=== PATIENT | female | born 1940 | race Caucasian/White ===

== ENCOUNTER → 2017-05-26 | Outpatient (CLI) | payer MEDICARE ==
--- NOTE | 2017-05-26 08:55 | XR ---
EXAMINATION TYPE: XR lumbosacral spine min 4V , 5 VIEWS DATE OF EXAM ORDERED: 05/26/2017 HISTORY: M54.5 LBP. COMPARISON: None. FINDINGS: There is a degenerative grade 1 spondylolisthesis of L5 on S1. Vertebral body height and a lignment are otherwise maintained. There is mild disc space loss at L5-S1. There is mild, diffuse fac et arthropathy. The pedicles are intact. IMPRESSION: 1. NO ACUTE OSSEOUS LESION. 2. DEGENERATIVE CHANGE.
--- NOTE | 2017-05-26 08:56 | XR ---
EXAMINATION TYPE: XR Hip Bilateral Complete , 4 VIEWS DATE OF EXAM ORDERED: 05/26/2017 HISTORY: M25.551 hip pain. COMPARISON: None. FINDINGS: No fracture or dislocation is seen. There is mild remodeling changes present in both hips. IMPRESSION: 1. NO ACUTE OSSEOUS LESION. 2. MILD DEGENERATIVE CHANGE.
== END | disposition home or self-care (01) ==
LOC: RADXRMAIN 08:33
PROVIDERS: ATTEND Family Medicine
DX: M47.817 Spondylosis without myelopathy or radiculopathy, lumbosacral region (principal); M25.552 Pain in left hip; M25.551 Pain in right hip
CPT/HCPCS: 72110; 73521

== ENCOUNTER → 2017-10-20 | Outpatient (CLI) | payer MEDICARE ==
--- NOTE | 2017-10-20 17:44 | BD ---
EXAMINATION TYPE: MG DEXA axial skeleton. DATE OF EXAM: 10/20/2017 COMPARISON: 11.30.2013 CLINICAL HISTORY: PT IS A 77 YR OLD FEMALE...ICD-10 CODE: M19.90 OSTEOARTHRITIS Height: 65 Weight: 158 FRAX RISK QUESTIONS: Alcohol (3 or more units per day): NO Family History (Parent hip fracture): NO FXS Glucocorticoids (More than 3mos): NO (Ex: prednisone, prednisolone, methylprednisolone, dexamethasone, and hydrocortisone). History of Fracture in Adulthood: NO Secondary Osteoporosis: YES 1. Type 1 Diabetes: NO 2. Hyperthyroidism: NO 3. Menopause before 45: YES 4. Malnutrition: NO 5. Chronic liver disease: NO Rheumatoid Arthritis: NO Current Tobacco Use: NO RISK FACTORS HISTORY OF: Family History of Osteoporosis: YES, HER MOTHER, NO HIP FX Active: YES Diet low in dairy products/other sources of calcium: NO Postmenopausal woman: YES AT AGE, 42 YRS OLD, NATURAL Lost more than 2 inches in height since high school: NO Hyperparathyroidism: NO Adrenal Insufficiency: NO MEDICATIONS: Additional Medications: MULTIVITAMIN, STATINS FOR CHOLESTEROL Additional History: OSTEOARTHRITIS EXAM MEASUREMENTS: Bone mineral densitometry was performed using the [employer] System. Bone mineral density as measured about the Lumbar spine is: ----- L1-L4(G/cm2): 0.759 T Score Values are as follows: ----- L1: -2.8 ----- L2: -4.3 ----- L3: -3.6 ----- L4: -3.4 ----- L1-L4: -3.5 Bone mineral density has: Increased 14.0% since study of: 11.30.2013 Bone mineral density about the R hip (g/cm2): 0.648 Bone mineral density about the L hip (g/cm2): 0.749 T Score values are as follows: -----R Neck: -2.6 -----L Neck: -2.1 -----R Total: -2.9 -----L Total: -2.0 Bone mineral density has: Increased 3.2% since study of: 11.30.2013 FRAX%'S: THERE IS A 19.9% CHANCE OF A MAJOR OSTEOPOROTIC FX AND A 7.1% OF HIP FX....PROBABILITY OF FX IN 10 YRS TIME IMPRESSION: Osteoporosis (T Score less than -2.5) as noted by T Score values at the There is increased fracture risk and therapy is usually indicated based on age. Re-Screen 1-2 years. NOTE: T-SCORE=SD OF THE YOUNG ADULT MEAN.
== END | disposition home or self-care (01) ==
LOC: RADBDWWP 12:25
PROVIDERS: ATTEND Family Medicine
DX: M81.0 Age-related osteoporosis without current pathological fracture (principal)
CPT/HCPCS: 77080

== ENCOUNTER → 2019-02-22 | Outpatient (CLI) | payer MEDICARE ==
--- NOTE | 2019-02-22 16:01 | XR ---
Bilateral hips HISTORY: Bilateral hip pain 2 views of each hip are submitted on 4 images and correlated to prior bilateral hips 05/26/2017. Bone mineralization mildly reduced. Alignment and joint spaces are relatively maintained, mild remode ling present in the femoral heads. IMPRESSION: Mild osteoarthritic changes. Hip MRI may be of benefit. Exam is stable.
== END ==
LOC: RADXRMAIN 11:53
PROVIDERS: ATTEND Family Medicine
DX: M16.0 Bilateral primary osteoarthritis of hip (principal)
CPT/HCPCS: 73521

== ENCOUNTER 2019-06-02 08:46 | Emergency (ER) | payer MEDICARE ==
[2019-06-02 08:55] VITALS: RESP 18
[2019-06-02] MEDS ORDERED: LIDOCAINE 5% PATCH TOPICAL STA (09:27)
[2019-06-02] MEDS ORDERED: KETOROLAC 30 MG/ML 1 ML VIAL IM STA (09:27)
[2019-06-02] MEDS ORDERED: MORPHINE SULFATE 2 MG/ML SYRINGE IM STA (09:27)
--- NOTE | 2019-06-02 09:36 | ED ---
Fall HPI <Nhan Humphries - Last Filed: 06/02/19 10:16> - General Source: patient, family Mode of arrival: ambulatory <Sophia Mac - Last Filed: 06/02/19 11:18> - General Chief Complaint: Fall Stated Complaint: fall Time Seen by Provider: 06/02/19 09:05 - History of Present Illness Initial Comments: 79-year-old female patient presents to the emergency department today for evaluation of right anterior rib pain after experiencing a fall. Patient states that last evening she was going from the house into the garage down 2 steps when she fell and landed on top of some oil bottles and an air compressor. Patient states that she did strike her ribs on something. Patient states that since the injury she has been having a sharp pain just beneath her right breast. Patient states that worsens with any type of movement and deep inspiration. She denies any cough or hemoptysis. She denies hitting her head or losing consciousness with the fall. She denies any neck or back pain. She does have some ecchymosis to the right upper arm but denies any pain with movement or any significant discomfort to the area. She denies taking any medication for her symptoms. She denies any use of anticoagulant or antiplatelet medications. Patient denies any headache, chest pain, shortness of breath, dizziness, weakness, abdominal pain, nausea, vomiting, or difficulties with bowel movements or urination. (Sophia Mac) - Related Data Home Medications Medication Instructions Recorded Confirmed Colesevelam [Welchol] 1,875 mg PO DAILY 03/31/15 02/04/16 Previous Rx's Medication Instructions Recorded Omeprazole [PriLOSEC] 20 mg PO AC-BRKFST #90 cap 02/04/16 Acetaminophen-Codeine 300-30mg 1 tab PO Q6H PRN #12 tablet 06/02/19 [Tylenol #3] Ibuprofen [Motrin] 600 mg PO Q8HR PRN #30 tab 06/02/19 Lidocaine 5% Patch [Lidoderm] 1 patch TOPICAL DAILY #5 patch 06/02/19 Allergies Allergy/AdvReac Type Severity Reaction Status Date / Time No Known Allergies Allergy Verified 02/04/16 09:30 Review of Systems ROS Other: All systems not noted in ROS Statement are negative. <Nhan Humphries - Last Filed: 06/02/19 10:16> ROS Other: All systems not noted in ROS Statement are negative. <Sophia Mac M - Last Filed: 06/02/19 11:18> ROS Statement: Those systems with pertinent positive or pertinent negative responses have been documented in the HPI. Past Medical History Past Medical History: Deep Vein Thrombosis (DVT), Hyperlipidemia Additional Past Medical History / Comment(s): DVT IN LEG IN 1960'S History of Any Multi-Drug Resistant Organisms: None Reported Past Surgical History: Hysterectomy Additional Past Surgical History / Comment(s): RT LEG VEIN STRIPPING Past Anesthesia/Blood Transfusion Reactions: No Reported Reaction Past Psychological History: No Psychological Hx Reported Smoking Status: Never smoker Past Alcohol Use History: None Reported Past Drug Use History: None Reported <Sophia Mac - Last Filed: 06/02/19 11:18> General Exam Limitations: no limitations General appearance: alert, in no apparent distress, other (This is a well- developed, well-nourished elderly female patient in no acute distress. Vital signs upon presentation are temperature 98.1F, pulse 81, respirations 18, blood pressure 161/94, pulse ox 96% on room air.) Head exam: Present: atraumatic, normocephalic, normal inspection Eye exam: Present: normal appearance, PERRL, EOMI. Absent: scleral icterus, conjunctival injection, periorbital swelling ENT exam: Present: normal exam, normal oropharynx, mucous membranes moist Neck exam: Present: normal inspection, full ROM, other (Nontender, no step-off, no deformity to firm midline palpation of the posterior cervical spine. Full range of motion without pain or limitation.). Absent: tenderness, meningismus, lymphadenopathy Respiratory exam: Present: normal lung sounds bilaterally, chest wall tenderness (Right anterior chest wall tenderness over rib #7 and 8 at the midclavicular line. There is some soft tissue swelling. No ecchymosis noted.). Absent: respiratory distress, wheezes, rales, rhonchi, stridor Cardiovascular Exam: Present: regular rate, normal rhythm, normal heart sounds. Absent: systolic murmur, diastolic murmur, rubs, gallop, clicks GI/Abdominal exam: Present: soft, normal bowel sounds, other (No ecchymosis or evidence of trauma.). Absent: distended, tenderness, guarding, rebound, rigid Extremities exam: Present: full ROM, normal capillary refill, other (There is large area of ecchymosis over the right upper arm. No bony tenderness. Full range of motion is intact. Skin is otherwise pink, warm, and dry. Cap refills less than 3 seconds. Radial pulses 2+ and equal bilaterally.). Absent: normal inspection, tenderness, pedal edema, joint swelling, calf tenderness Back exam: Present: normal inspection, other (Nontender, no step-off, no deformity to firm midline palpation of the thoracic and lumbar vertebrae. Full range of motion without pain or limitation.). Absent: vertebral tenderness Neurological exam: Present: alert, oriented X3, CN II-XII intact Psychiatric exam: Present: normal affect, normal mood Skin exam: Present: warm, dry, intact, normal color. Absent: rash <Sophia Mac - Last Filed: 06/02/19 11:18> Course <Nhan Humphries - Last Filed: 06/02/19 10:16> Vital Signs 06/02/19 06/02/19 08:49 10:45 Temperature 98.1 F 98 F Pulse Rate 81 78 Respiratory 18 18 Rate Blood Pressure 161/94 129/83 O2 Sat by Pulse 96 Oximetry - Reevaluation(s) Reevaluation #1: 06/02/19 10:16 STOCK CONTROL SUPERVISOR supervision: I proceeded evaluation this case and a review the imaging no definite rib fractures are seen. Patient did have a fall. Contusion is suspected. I do agree with the assessment and plan. (Nhan Humphries) Medical Decision Making - Radiology Data Radiology results: report reviewed, image reviewed <Sophia Mac - Last Filed: 06/02/19 11:18> - Medical Decision Making 79-year-old female patient presented to the emergency department today for evaluation after experiencing a fall at home last evening. Physical examination did reveal ecchymosis to the right upper arm with some mild localized tenderness but no bony tenderness or difficulty with range of motion. Patient states she is concern is the right anterior rib pain. Physical examination did reveal tenderness over the right anterior ribs. No ecchymosis was some mild soft tissue swelling. X-ray of the right ribs and chest was obtained shows no acute pulmonary process however there was evidence for a nondisplaced fracture to the right ninth rib. Patient was given pain medication here she does have improvement of symptoms with this. She charged home with pain management prescriptions. She is given incentive spirometer with instructions regarding its use. We did discuss coughing and deep breathing exercises. She is instructed to follow-up with her primary care physician for recheck in 1-2 days. Return parameters were discussed in detail. She verbalizes understanding and agrees with this plan. (Sophia Mac) - Radiology Data X-ray of the right ribs with one view chest x-ray were obtained. Report was reviewed in its entirety. Impression by Dr. Monreal shows no acute pulmonary process. No acute displaced right-sided rib fractures are seen. I did review the image there is concern for a nondisplaced rib fracture to rib #9 (Sophia Mac) Disposition <Nhan Humphries - Last Filed: 06/02/19 10:16> Is patient prescribed a controlled substance at d/c from ED?: Yes When asked, does pt state using other controlled substances?: No If prescribed controlled substance>3 days was MAPS reviewed?: Prescribed <3 Days If opioid is for acute pain is fill amount 7 days or less?: Yes If Rx opioid, was Start Talking consent form obtained?: Yes Time of Disposition: 10:22 <Sophia Mac - Last Filed: 06/02/19 11:18> Clinical Impression: Right rib fracture Disposition: HOME SELF-CARE Condition: Good Instructions (If sedation given, give patient instructions): How to Use an Incentive Spirometer (ED), Rib Fracture (ED) Additional Instructions: Use pain medications as directed. Splint with a pillow over the area for any coughing and while you're doing deep breathing exercises. Increase fluids. Follow-up with your primary care physician for recheck in 1-2 days. Return to the emergency department immediately should she develop any shortness of breath or coughing up blood. Return to for any other new, worsening, or concerning symptoms. Prescriptions: Lidocaine 5% Patch [Lidoderm] 1 patch TOPICAL DAILY #5 patch Ibuprofen [Motrin] 600 mg PO Q8HR PRN #30 tab PRN Reason: Pain Acetaminophen-Codeine 300-30mg [Tylenol #3] 1 tab PO Q6H PRN #12 tablet PRN Reason: Pain Referrals: Yandel Gutiérrez DO [Primary Care Provider] - 1-2 days
--- NOTE | 2019-06-02 09:54 | XR ---
EXAMINATION TYPE: XR ribs RT w pa chest xray DATE OF EXAM: 06/02/2019 CLINICAL HISTORY: Follow injury with chest and right-sided rib pain. TECHNIQUE: Single frontal view of the chest is obtained. A frontal and oblique images of the right-si ded ribs are obtained. COMPARISON: None FINDINGS: There is lobulated right hemidiaphragm with right basilar vertical linear scarring. There is no focal air space opacity, pleural effusion, or pneumothorax seen. The cardiac silhouette size i s within normal limits. The osseous structures are demineralized. Dedicated images of right-sided ribs show no obvious acute displaced fracture. Overlying soft tissue is unremarkable. IMPRESSION: 1. No acute pulmonary process. 2. No acute displaced right-sided rib fractures are seen.
[2019-06-02 10:45] VITALS: BP 129/83; PULSE 78; TEMP 98
== END 2019-06-02 10:45 | disposition home or self-care (01) ==
LOC: EC 08:46
DX: S22.31XA Fracture of one rib, right side, initial encounter for closed fracture (principal); S40.021A Contusion of right upper arm, initial encounter; E78.5 Hyperlipidemia, unspecified; Z79.899 Other long term (current) drug therapy; W10.9XXA Fall (on) (from) unspecified stairs and steps, initial encounter; Y93.01 Activity, walking, marching and hiking; Y92.008 Other place in unspecified non-institutional (private) residence as the place of occurrence of the external cause
CPT/HCPCS: 71101; 99284; 96372 ×2; J1885; J2270

== ENCOUNTER → 2019-11-01 | Outpatient (CLI) | payer MEDICARE ==
--- NOTE | 2019-11-01 14:00 | BD ---
EXAMINATION TYPE: Axial Bone Density DATE OF EXAM: 11/01/2019 COMPARISON: 10.20.2017 CLINICAL HISTORY: 79 YR OLD FEMALE....ICD-10 CODE: M81.0 OSTEOPOROSIS Height: 64.6 Weight: 155 FRAX RISK QUESTIONS: History of Fracture in Adulthood: YES RISK FACTORS HISTORY OF: HX OF RIB FXs, AFTER AGE 49 Family History of Osteoporosis: YES, HER MOTHER NO FX Postmenopausal woman: YES, IN HER 50s Lost more than 2 inches in height since high school: YES Frequent falls: UNSTEADY Poor Health: ELDERLY Hyperparathyroidism: NO Adrenal Insufficiency: NO MEDICATIONS: Osteoporosis Medications: YES, FOSAMAX, FOR ABOUT 1-2 YRS Additional Medications: CHOLESTEROL MEDS, MULTIVITAMIN Additional History: CHOLESTEROL, OSTEOPOROSIS EXAM MEASUREMENTS: Bone mineral densitometry was performed using the [employer] System. Bone mineral density as measured about the Lumbar spine is: ----- L1-L4(G/cm2): 0.789 T Score Values are as follows: ----- L1: -2.3 ----- L2: -4.0 ----- L3: -3.6 ----- L4: -3.2 ----- L1-L4: -3.3 Bone mineral density has: Increased 2.5% since study of: 10.20.2017 Bone mineral density about the R hip (g/cm2): 0.649 Bone mineral density about the L hip (g/cm2): 0.721 T Score values are as follows: -----R Neck: -2.7 -----L Neck: -2.5 -----R Total: -2.9 -----L Total: -2.3 Bone mineral density has: Decreased -2.0% since study of: 10.20.2017 FRAX%s: THERE IS A 30.1% CHANCE FOR A MAJOR OSTEOPOROTIC FX AND A 10.7% FOR HIP......PROBABILITY FO R FX IN 10 YRS TIME IMPRESSION: Osteoporosis lumbar spine. Osteoporosis right hip with osteopenia left hip. NOTE: T-SCORE=SD OF THE YOUNG ADULT MEAN.
== END | disposition home or self-care (01) ==
LOC: RADBDWWP 07:03
PROVIDERS: ATTEND Family Medicine
DX: M81.0 Age-related osteoporosis without current pathological fracture (principal)
CPT/HCPCS: 77080

== ENCOUNTER 2021-07-07 10:00 | Emergency (ER) | payer MEDICARE ==
[2021-07-07 10:04] VITALS: RESP 18; TEMP 97.7
[2021-07-07] MEDS ORDERED: ACETAMINOPHEN TAB 500 MG TAB PO STA (10:25)
--- NOTE | 2021-07-07 10:40 | ED ---
Fall HPI - General Chief Complaint: Fall Stated Complaint: Fall Time Seen by Provider: 07/07/21 10:06 Source: patient Mode of arrival: wheelchair - History of Present Illness Initial Comments: Patient is an 81-year-old female presenting to emergency Department with complaints of right-sided rib pain after she fell this morning. She states she tripped over the rug and fell backwards into a watering can. She landed mostly on her right ribs of the can going underneath her ribs. She denies hitting her head, she signed thinners. She has no other complaints other than the right- sided rib pain. Her vitals are stable. - Related Data Home Medications Medication Instructions Recorded Confirmed Colesevelam [Welchol] 1,875 mg PO DAILY 03/31/15 07/07/21 Alendronate Sodium [Fosamax] 70 mg PO WE 07/07/21 07/07/21 Kenrick/D3/Mag11/Zinc/Hydroponics Worker/Pelon/Bor 1 tab PO DAILY 07/07/21 07/07/21 [Caltrate 600+D Plus Tablet] Cholecalciferol [Vitamin D3 (25 25 mcg PO DAILY 07/07/21 07/07/21 Mcg = 1000 Iu)] Meloxicam [Mobic] 15 mg PO DAILY 07/07/21 07/07/21 Allergies Allergy/AdvReac Type Severity Reaction Status Date / Time No Known Allergies Allergy Verified 07/07/21 11:18 Review of Systems ROS Statement: Those systems with pertinent positive or pertinent negative responses have been documented in the HPI. ROS Other: All systems not noted in ROS Statement are negative. Past Medical History Past Medical History: Deep Vein Thrombosis (DVT), Hyperlipidemia Additional Past Medical History / Comment(s): DVT IN LEG IN History of Any Multi-Drug Resistant Organisms: None Reported Past Surgical History: Hysterectomy Additional Past Surgical History / Comment(s): RT LEG VEIN STRIPPING Past Anesthesia/Blood Transfusion Reactions: No Reported Reaction Past Psychological History: No Psychological Hx Reported Smoking Status: Never smoker Past Alcohol Use History: None Reported Past Drug Use History: None Reported General Exam - General Exam Comments Initial Comments: GENERAL: Patient is well-developed and well-nourished. Patient is nontoxic and in no ac boo distress. HEAD: Atraumatic, normocephalic. EYES: Pupils equal round and reactive to light, extraocular movements intact, sclera anicteric, conjunctiva are normal. Eyelids were unremarkable. ENT: Nares patent, oropharynx clear without exudates. Moist mucous membranes. NECK: Normal range of motion, supple without lymphadenopathy or JVD. LUNGS: Unlabored respirations. Breath sounds clear to auscultation bilaterally and equal. No wheezes rales or rhonchi. HEART: Regular rate and rhythm without murmurs, rubs or gallops. ABDOMEN: Soft, nontender, normoactive bowel sounds. No guarding, no rebound. No masses appreciated. : Deferred MUSCULOSKELETAL: Normal extremities with adequate strength and normal range of motion, no pitting or edema. No clubbing or cyanosis. Patient has pain with palpation of the right lateral ribs, which does extend to the anterior and posterior aspects. No deformity seen, no crepitus, no bruising at this time. NEUROLOGICAL: Patient is alert and oriented x 3. Motor and sensory are also intact. Cranial nerves II through XII grossly intact. Symmetrical smile. Normal speech, normal gait. PSYCH: Normal mood, normal affect. SKIN: Warm, Dry, normal turgor, no rashes or lesions noted. Limitations: no limitations Course Vital Signs 07/07/21 10:01 Temperature 97.7 F Pulse Rate 98 Respiratory 18 Rate Blood Pressure 135/72 O2 Sat by Pulse 98 Oximetry Medical Decision Making - Medical Decision Making Patient is an 81-year-old female presenting for right-sided rib pain after she fell a couple hours ago. She did not hit her head, she is no other complaints other than the rib pain. X-rays of the right-sided ribs and chest reveal no acute pulmonary process, there are 2 acute nondisplaced right rib fractures of the eighth and ninth ribs. Patient was given Tylenol here. We discussed using incentive spirometer. I'll give her Tylenol 3's to go home with. She can follow up with her doctor as needed. She is agreeable as planned care and is stable for discharge. Return parameters were discussed with her and she verbalized understanding. Case discussed with Dr. Wilson. Disposition Clinical Impression: Fall, Fracture of rib of right side Disposition: HOME SELF-CARE Condition: Stable Instructions (If sedation given, give patient instructions): Rib Fracture (ED) Additional Instructions: Please return to the Emergency Department if symptoms worsen or any other conc erns. You may continue with meloxicam as prescribed. May alternate it with Tylenol. May take Tylenol threes for more severe pain. Please follow-up with your doctor as needed. Please use incentive spirometer as instructed. Is patient prescribed a controlled substance at d/c from ED?: No Referrals: Yandel Gutiérrez DO [Primary Care Provider] - 1-2 days Time of Disposition: 12:31
--- NOTE | 2021-07-07 12:04 | XR ---
EXAMINATION TYPE: XR ribs RT w pa chest xray DATE OF EXAM: 07/07/2021 CLINICAL HISTORY: Chest and right-sided rib pain after fall injury TECHNIQUE: Single frontal view of the chest is obtained. A frontal and oblique images of the right-si ded ribs. COMPARISON: Prior chest and right rib x-rays June 02, 2019 FINDINGS: There is lobulated right hemidiaphragm redemonstrated. There is no suspicious new focal ai r space opacity, pleural effusion, or pneumothorax seen bilaterally. The cardiac silhouette size is stable and upper limits of normal. The osseous structures are demineralized. Dedicated images of right-sided ribs show acute mildly displaced fracture involving anterolateral rig ht eighth and ninth ribs confirmed on several images. Overlying soft tissue is unremarkable. IMPRESSION: 1. No acute pulmonary process. 2. Acute nondisplaced anterolateral right eighth and mildly displaced anterolateral right ninth rib f ractures.
[2021-07-07] MEDS ORDERED: ACET/COD 300 MG/30 MG STARTER PACK 6 TAB BTL PO STA (12:32)
[2021-07-07 13:13] VITALS: BP 126/86; PULSE 75
== END 2021-07-07 13:12 | disposition home or self-care (01) ==
LOC: EC 10:00
DX: S22.31XA Fracture of one rib, right side, initial encounter for closed fracture (principal); Z86.718 Personal history of other venous thrombosis and embolism; E78.5 Hyperlipidemia, unspecified; Z79.899 Other long term (current) drug therapy; W16.2 Fall in (into) filled bathtub or bucket of water; Y92.009 Unspecified place in unspecified non-institutional (private) residence as the place of occurrence of the external cause
CPT/HCPCS: 99283

== ENCOUNTER 2022-01-12 09:28 | Emergency (ER) | payer MEDICARE ==
[2022-01-12 09:33] VITALS: TEMP 98.5
[2022-01-12] MEDS: SODIUM CHLORIDE 0.9% 500 ML 500 ML IV STA (09:46)
[2022-01-12 10:05] LABS: Basophils % (A) 0 %; Eosinophils # (A) 0.1 k/uL (0-0.7); Eosinophils % (A) 2 %; HCT 37.4 % (34.0-46.0); HGB 12.2 gm/dL (11.4-16.0); Lymphocytes # (A) 1.4 k/uL (1.0-4.8); Lymphocytes % (A) 27 %; MCH 30.6 pg (25.0-35.0); MCHC 32.5 g/dL (31.0-37.0); Mean Platelet Volume 7.2; Monocytes # (A) 0.3 k/uL (0-1.0); Monocytes % (A) 5 %; Neutrophils # (A) 3.3 k/uL (1.3-7.7); Neutrophils % (A) 63 %; Platelet Count 298 k/uL (150-450); RBC 3.98 m/uL (3.80-5.40); RDW 13.8 % (11.5-15.5); WBC 5.3 k/uL (3.8-10.6)
--- NOTE | 2022-01-12 10:22 | ED ---
General Adult HPI - General Chief complaint: Syncope Stated complaint: accidental med ingestion Time Seen by Provider: 01/12/22 09:32 Source: patient, RN notes reviewed Mode of arrival: ambulatory Limitations: no limitations - History of Present Illness Initial comments: This an 81-year-old female presents emergency Department with chief complaint of accidental medication ingestion, syncopal episode. Patient states that she actually took her terazosin this morning around 7 AM. Patient states she went to [facility] and which she has syncopal episode. Patient states she felt very lightheaded, dizzy. She denies striking her head no significant complaints. Denies Any focal weakness. She states she just feels very tired, does not feel well. She has no abdominal complaints no focal weakness the lower extremity pain or upper extremity pain. - Related Data Home Medications Medication Instructions Recorded Confirmed Colesevelam [Welchol] 1,875 mg PO HS 03/31/15 01/12/22 Alendronate Sodium [Fosamax] 70 mg PO WE 07/07/21 01/12/22 Kenrick/D3/Mag11/Zinc/Treasury Accountant/Pelon/Bor 1 tab PO DAILY 07/07/21 01/12/22 [Caltrate 600+D Plus Tablet] Cholecalciferol [Vitamin D3 (25 25 mcg PO DAILY 07/07/21 01/12/22 Mcg = 1000 Iu)] Meloxicam [Mobic] 15 mg PO DAILY 07/07/21 01/12/22 Allergies Allergy/AdvReac Type Severity Reaction Status Date / Time No Known Allergies Allergy Verified 01/12/22 10:53 Review of Systems ROS Statement: Those systems with pertinent positive or pertinent negative responses have been documented in the HPI. ROS Other: All systems not noted in ROS Statement are negative. Past Medical History Past Medical History: Deep Vein Thrombosis (DVT), Hyperlipidemia Additional Past Medical History / Comment(s): DVT IN LEG IN 1960'S History of Any Multi-Drug Resistant Organisms: None Reported Past Surgical History: Hysterectomy Additional Past Surgical History / Comment(s): RT LEG VEIN STRIPPING Past Anesthesia/Blood Transfusion Reactions: No Reported Reaction Past Psychological History: No Psychological Hx Reported Smoking Status: Never smoker Past Alcohol Use History: None Reported Past Drug Use History: None Reported General Exam Limitations: no limitations General appearance: alert, in no apparent distress, lethargic Head exam: Present: atraumatic, normocephalic, normal inspection Eye exam: Present: normal appearance, PERRL, EOMI. Absent: scleral icterus, conjunctival injection, periorbital swelling ENT exam: Present: normal exam, mucous membranes moist Neck exam: Present: normal inspection. Absent: tenderness, meningismus, lymphadenopathy Respiratory exam: Present: normal lung sounds bilaterally. Absent: respiratory distress, wheezes, rales, rhonchi, stridor Cardiovascular Exam: Present: regular rate, normal rhythm, normal heart sounds. Absent: systolic murmur, diastolic murmur, rubs, gallop, clicks GI/Abdominal exam: Present: soft, normal bowel sounds. Absent: distended, tenderness, guarding, rebound, rigid Neurological exam: Present: alert, oriented X3, CN II-XII intact, reflexes normal. Absent: motor sensory deficit Skin exam: Present: warm, dry, intact, normal color. Absent: rash Course Vital Signs 01/12/22 01/12/22 09:29 12:52 Temperature 98.5 F Pulse Rate 96 94 Respiratory 20 18 Rate Blood Pressure 114/67 111/58 O2 Sat by Pulse 91 L 96 Oximetry Medical Decision Making - Medical Decision Making 81-year-old female presented for syncopal episode after taking husbands medication. She had a full workup which is essentially negative. She is feeling well improved she is requesting to be discharged at time as she feels great she was able to him by 2 bathroom with no difficulty. Patient's blood pressure has been within normal limits. Patient will be discharged in stable condition with return parameters. Patient has no cough or cold like symptoms consistent with early pneumonia. - Lab Data Result diagrams: 01/12/22 09:46 01/12/22 09:46 Lab Results 01/12/22 01/12/22 01/12/22 Range/Units 09:46 09:46 09:46 WBC 5.3 (3.8-10.6) k/uL RBC 3.98 (3.80-5.40) m/uL Hgb 12.2 (11.4-16.0) gm/dL Hct 37.4 (34.0-46.0) % MCV 94.0 (80.0-100.0) fL MCH 30.6 (25.0-35.0) pg MCHC 32.5 (31.0-37.0) g/dL RDW 13.8 (11.5-15.5) % Plt Count 298 (150-450) k/uL MPV 7.2 Neutrophils % 63 % Lymphocytes % 27 % Monocytes % 5 % Eosinophils % 2 % Basophils % 0 % Neutrophils # 3.3 (1.3-7.7) k/uL Lymphocytes # 1.4 (1.0-4.8) k/uL Monocytes # 0.3 (0-1.0) k/uL Eosinophils # 0.1 (0-0.7) k/uL Basophils # 0.0 (0-0.2) k/uL PT 10.3 (9.0-12.0) sec INR 0.9 (<1.2) APTT 20.1 L (22.0-30.0) sec D-Dimer 0.91 H (<0.60) mg/L FEU Sodium 138 (137-145) mmol/L Potassium 3.9 (3.5-5.1) mmol/L Chloride 113 H (98-107) mmol/L Carbon Dioxide 21 L (22-30) mmol/L Anion Gap 4 mmol/L BUN 25 H (7-17) mg/dL Creatinine 0.75 (0.52-1.04) mg/dL Est GFR (CKD-EPI)AfAm 86 (>60 ml/min/1.73 sqM) Est GFR (CKD-EPI)NonAf 75 (>60 ml/min/1.73 sqM) Glucose 135 H (74-99) mg/dL Calcium 9.6 (8.4-10.2) mg/dL Magnesium 2.0 (1.6-2.3) mg/dL Total Bilirubin 0.4 (0.2-1.3) mg/dL AST 33 (14-36) U/L ALT 13 (4-34) U/L Alkaline Phosphatase 64 (38-126) U/L Troponin I (0.000-0.034) ng/mL Total Protein 6.2 L (6.3-8.2) g/dL Albumin 3.4 L (3.5-5.0) g/dL 01/12/22 Range/Units 09:46 WBC (3.8-10.6) k/uL RBC (3.80-5.40) m/uL Hgb (11.4-16.0) gm/dL Hct (34.0-46.0) % MCV (80.0-100.0) fL MCH (25.0-35.0) pg MCHC (31.0-37.0) g/dL RDW (11.5-15.5) % Plt Count (150-450) k/uL MPV Neutrophils % % Lymphocytes % % Monocytes % % Eosinophils % % Basophils % % Neutrophils # (1.3-7.7) k/uL Lymphocytes # (1.0-4.8) k/uL Monocytes # (0-1.0) k/uL Eosinophils # (0-0.7) k/uL Basophils # (0-0.2) k/uL PT (9.0-12.0) sec INR (<1.2) APTT (22.0-30.0) sec D-Dimer (<0.60) mg/L FEU Sodium (137-145) mmol/L Potassium (3.5-5.1) mmol/L Chloride (98-107) mmol/L Carbon Dioxide (22-30) mmol/L Anion Gap mmol/L BUN (7-17) mg/dL Creatinine (0.52-1.04) mg/dL Est GFR (CKD-EPI)AfAm (>60 ml/min/1.73 sqM) Est GFR (CKD-EPI)NonAf (>60 ml/min/1.73 sqM) Glucose (74-99) mg/dL Calcium (8.4-10.2) mg/dL Magnesium (1.6-2.3) mg/dL Total Bilirubin (0.2-1.3) mg/dL AST (14-36) U/L ALT (4-34) U/L Alkaline Phosphatase (38-126) U/L Troponin I <0.012 (0.000-0.034) ng/mL Total Protein (6.3-8.2) g/dL Albumin (3.5-5.0) g/dL Disposition Clinical Impression: Accidental drug ingestion, Syncope Disposition: HOME SELF-CARE Condition: Stable Instructions (If sedation given, give patient instructions): Syncope (ED) Additional Instructions: Please return to the Emergency Department if symptoms worsen or any other concerns. Is patient prescribed a controlled substance at d/c from ED?: No Referrals: Yandel Gutiérrez DO [Primary Care Provider] - 1-2 days Time of Disposition: 13:33
[2022-01-12 10:27] LABS: Albumin 3.4 g/dL (3.5-5.0); Calcium 9.6 mg/dL (8.4-10.2); Potassium 3.9 mmol/L (3.5-5.1); Total Bilirubin 0.4 mg/dL (0.2-1.3); Total Protein 6.2 g/dL (6.3-8.2)
[2022-01-12 10:31] LABS: INR 0.9 (<1.2)
[2022-01-12 10:32] LABS: Prothrombin Time 10.3 sec (9.0-12.0)
[2022-01-12 10:35] LABS: Partial Thromboplastin Time 20.1 sec (22.0-30.0)
--- NOTE | 2022-01-12 10:53 | XR ---
EXAMINATION TYPE: XR chest 2V DATE OF EXAM: 01/12/2022 COMPARISON: Chest x-ray 07/07/2021 HISTORY: Syncope TECHNIQUE: Frontal and lateral views of the chest are obtained. FINDINGS: A shunt is rotated. There is eventration of right hemidiaphragm as on prior exam. There are overlying leads. Some strand-like density is present at the posterior lung base seen on the lateral exam. There is no pleural effusion or pneumothorax seen. The cardiac silhouette size is within preeti l limits, stable. The osseous structures are intact. IMPRESSION: There may be some basilar atelectasis or scarring, correlate to exclude early pneumonia, follow-up as indicated
--- NOTE | 2022-01-12 11:59 | CT ---
EXAMINATION TYPE: CT chest angio for PE DATE OF EXAM: 01/12/2022 COMPARISON: No previous CT scan is available for comparison. HISTORY: Accidental medication ingestion with syncope. CT DLP: 231.3 mGycm Automated exposure control for dose reduction was used. CONTRAST: CT Chest for pulmonary embolism performed with with IV Contrast, patient injected with 100 mL of Isov ue 370. MIP images were performed and reviewed. FINDINGS: No definite filling defect is seen within the pulmonary trunk, main pulmonary arteries, lobar, segmen emily and proximal subsegmental arteries. Distal subsegmental arteries are suboptimally visualized. The left main pulmonary artery measures up to 2.8 cm. The pulmonary trunk measures 2.8 cm. The ascending aorta measures up to 3.7 cm. Apparent cardiomegaly, please correlate with echocardiographic results. Scattered basal subsegmental pulmonary atelectasis with scattered bilateral peripheral pulmonary reti culations, subtle groundglass opacities and prominent interstitial lung markings, probably due to inc omplete lung expansion. 3 mm pulmonary nodule is seen at the anterior aspect of the right upper lung lobe (image 59, series 406). Optional follow-up CT scan in 12 months can be considered if high risk p atient. Slight cardiomediastinal shift to the left side. Patent central airways. No sizable pleural or perica rdial effusion. No pathologically enlarged lymph nodes in the chest. Questionable cyst at the anterio r aspect of the left hepatic lobe with cholelithiasis, not completely included in the scan. Osteopeni a. Anterolisthesis of C7 over T1, likely degenerative. No aggressive bone lesion. IMPRESSION: No major or central pulmonary embolism. Cardiomegaly, please correlate with echocardiographic results . The described pulmonary changes are nonspecific and could be related to incomplete lung expansion how ever underlying pulmonary edema or subtle infection cannot be excluded, please correlate clinically. Other incidental findings as described above.
[2022-01-12 13:44] VITALS: BP 118/78; PULSE 88; RESP 20
== END 2022-01-12 13:55 | disposition home or self-care (01) ==
LOC: EC 09:28
DX: R55 Syncope and collapse (principal); T50.905A Adverse effect of unspecified drugs, medicaments and biological substances, initial encounter; I10 Essential (primary) hypertension
CPT/HCPCS: 36415; 93005; 85379; 80053; 83735; 84484; 85025; 85610; 85730; 71046; 71275; 99285; Q9967

== ENCOUNTER → 2022-04-28 | Outpatient (CLI) | payer MEDICARE ==
--- NOTE | 2022-04-28 11:34 | BD ---
EXAMINATION TYPE: Axial Bone Density DATE OF EXAM: 04/28/2022 COMPARISON: 11/01/2019 CLINICAL HISTORY: 82 years year old Female. ICD-10 CODE: Known osteoporosis M81.0 Height: 65 Weight: 146.4 FRAX RISK QUESTIONS: Alcohol (3 or more units per day): NO Family History (Parent hip fracture): NO Glucocorticoids (More than 3mos): NO (Ex: prednisone, prednisolone, methylprednisolone, dexamethasone, and hydrocortisone). History of Fracture in Adulthood: NO Secondary Osteoporosis: 1. Type 1 Diabetes: NO 2. Hyperthyroidism: NO 3. Menopause before 45: NO 4. Malnutrition: NO 5. Chronic liver disease: NO Rheumatoid Arthritis: NO Current Tobacco Use: NO RISK FACTORS HISTORY OF: Hip Fracture (Right/Left): NO Spine Fracture: NO History of Wrist Fracture: NO Surgery to Spine/Hip(right/left)/Wrist (right/left): NO Family History of Osteoporosis: MOTHER Active: YES Diet low in dairy products/other sources of calcium: YES Postmenopausal woman: YES Take estrogen and/or progesterone medications: NO Lost more than 2 inches in height since high school: YES Frequent falls: NO Poor Health: NO Hyperparathyroidism: NO Adrenal Insufficiency: NO MEDICATIONS: Prednisone or other steroids: NO Thyroid Medications: NO Osteoporosis Medications: YES Which medication: ALENDRONATE WEEKLY How Long: PAST 2 YEARS Additional Medications: COLESEVEL, VIT D, CALTRATE EXAM MEASUREMENTS: Bone mineral densitometry was performed using the [employer] System. Bone mineral density as measured about the Lumbar spine is: ----- L1-L4(G/cm2): 0.761 T Score Values are as follows: ----- L1: -2.7 ----- L2: -4.3 ----- L3: -3.7 ----- L4: -3.4 ----- L1-L4: -3.5 Bone mineral density has: DECREASED 2.6 % since study of: 11/01/2019 Bone mineral density about the R hip (g/cm2): 0.688 Bone mineral density about the L hip (g/cm2): 0.793 T Score values are as follows: -----R Neck: -2.5 -----L Neck: -1.8 -----R Total: -3.1 -----L Total: -2.2 Bone mineral density has: DECREASED 1.8 % since study of: 11/01/2019 FRAX%s: The graph provided illustrates a 19.4% chance for a major osteoporotic fx and a 7.2% chance f or the hips probability for fx in 10 years time. IMPRESSION: Osteoporosis NOTE: T-SCORE=SD OF THE YOUNG ADULT MEAN.
== END | disposition home or self-care (01) ==
LOC: RADBDWWP 09:39
PROVIDERS: ATTEND Family Medicine
DX: M81.0 Age-related osteoporosis without current pathological fracture (principal)
CPT/HCPCS: 77080

== ENCOUNTER → 2025-05-28 | Outpatient (CLI) | payer MEDICARE ==
--- NOTE | 2025-05-28 15:40 | XR ---
EXAMINATION TYPE: XR chest 2V DATE OF EXAM: 05/28/2025 3:09 PM COMPARISON: Chest radiographs from 01/12/2022, CTA chest 01/12/2022 TECHNIQUE: XR chest 2V Frontal and lateral views of the chest. CLINICAL INDICATION:Female, 85 years old with history of R22.2 LOCALIZED SWELLING, MASS AND LUMP, MAIRA NK; FINDINGS: Lungs/Pleura: There is flattening of the diaphragm with increased lucency of the lungs. No evidence o f pneumothorax, pleural effusion or focal consolidation. Pulmonary vascularity: Unremarkable. Heart/mediastinum: Cardiomediastinal silhouette is unremarkable. Musculoskeletal: No acute osseous pathology. IMPRESSION: 1. No acute cardiopulmonary disease process. 2. COPD changes. [facility], , 05/28/2025 3:37 PM
--- NOTE | 2025-05-28 15:41 | XR ---
EXAMINATION TYPE: XR thoracic spine complete DATE OF EXAM: 05/28/2025 3:09 PM INDICATION: Patient age:Female; 85 years old; Reason for study: R22.2 LOCALIZED SWELLING, MASS AND LUMP, TRUNK; PHH. pain COMPARISON: CTA chest 01/12/2022, chest radiograph 01/12/2022 TECHNIQUE: 2 views of the thoracic spine in frontal, lateral, and swimmer's projections. FINDINGS: No evidence of acute fracture. No loss of vertebral body height. There is normal alignment of the tho racic vertebral bodies. Multilevel disc space narrowing with endplate sclerosis. IMPRESSION: 1. No acute osseous pathology. 2. Mild multilevel degenerative disc disease of the thoracic spine. [facility], , 05/28/2025 3:39 PM
== END | disposition home or self-care (01) ==
LOC: RADXRMAIN 14:39
PROVIDERS: ATTEND Family Medicine
DX: J44.9 Chronic obstructive pulmonary disease, unspecified (principal); M51.34 Other intervertebral disc degeneration, thoracic region
CPT/HCPCS: 71046; 72072